=== PATIENT | female | born 1975 | race Caucasian/White ===

== ENCOUNTER 2016-11-29 18:30 | Emergency (ER) | payer MEDICAID ==
[2016-11-29 18:54] VITALS: BP 187/107
--- NOTE | 2016-11-29 19:24 | ER Document Report ---
ED Medical Screen (RME) - General Stated Complaint: HIGH BLOOD PRESSURE Notes: Patient states her blood pressures been elevated since and feet were swelling. Was seen by her doctor on Monday and labs was ordered but no results yet. Complains of left-sided facial twitching and headache. Also states she has been having some blurred vision. Patient does have a history of lupus and migraines. No history of high blood pressure. Patient reports some chest pain or shortness of breath going up the stairs. I have greeted and performed a rapid initial assessment of this patient. A comprehensive ED assessment and evaluation of the patient, analysis of test results and completion of the medical decision making process will be conducted by additional ED providers. TRAVEL OUTSIDE OF THE [place] IN LAST 30 DAYS: No - Related Data Allergies/Adverse Reactions: No Known Allergies Allergy (Verified 11/29/16 19:18) Past Medical History Psychiatric Medical History: Reports: Hx Anxiety Past Surgical History: Reports: Hx Hysterectomy - Immunizations Immunizations up to date: Yes Hx Diphtheria, Pertussis, Tetanus Vaccination: Yes Physical Exam - Vital signs Vitals: Temp Pulse Resp BP Pulse Ox 98.2 F 81 17 187/107 H 100 11/29/16 18:54 11/29/16 18:54 11/29/16 18:54 11/29/16 18:54 11/29/16 18:54 - HEENT Conjunctiva: Normal Extraocular movements intact: Yes Pupils: PERRL Course - Vital Signs Vital signs: Temp Pulse Resp BP Pulse Ox 98.2 F 81 17 187/107 H 100 11/29/16 18:54 11/29/16 18:54 11/29/16 18:54 11/29/16 18:54 11/29/16 18:54
[2016-11-29 19:47] LABS: ABSOLUTE BASOPHILS # (AUTO) 0.1 10^3/uL (0.0-0.2); ABSOLUTE EOSINOPHILS # (AUTO) 0.1 10^3/uL (0.0-0.6); ABSOLUTE LYMPHOCYTES (AUTO) 1.8 10^3/uL (0.5-4.7); ABSOLUTE MONOCYTES (AUTO) 0.6 10^3/uL (0.1-1.4); ABSOLUTE NEUT (AUTO) 7.5 10^3/uL (1.7-8.2); BASOPHILS % (AUTO) 0.7 % (0-2); EOSINOPHILS % (AUTO) 1.3 % (0-6); HEMATOCRIT 40.8 % (36.0-47.0); HEMOGLOBIN 14.2 g/dL (12.0-15.5); HGB HCT DIFFERENCE 1.8; MEAN CORPUSCULAR HEMOGLOBIN 30.5 pg (27.0-33.4); MEAN CORPUSCULAR HGB CONC 34.9 g/dL (32.0-36.0); MEAN CORPUSCULAR VOLUME 88 fl (80-97); MONOCYTES % (AUTO) 5.8 % (3-13); RED BLOOD COUNT 4.66 10^6/uL (3.72-5.28); RED CELL DISTRIBUTION WIDTH 13.1 % (11.5-14.0); SEGMENTED NEUTROPHILS % (AUTO) 74.2 % (42-78); WHITE BLOOD COUNT 10.1 10^3/uL (4.0-10.5)
[2016-11-29 19:56] LABS: APPEARANCE,URINE SLIGHTLY-CLOUDY; BILIRUBIN,URINE NEGATIVE (NEGATIVE); GLUCOSE, URINE NEGATIVE (NEGATIVE); KETONES,URINE NEGATIVE (NEGATIVE); LEUKOCYTE ESTERASE,URINE NEGATIVE (NEGATIVE); NITRITE,URINE NEGATIVE (NEGATIVE); PROTEIN,URINE NEGATIVE (NEGATIVE); URINE SPECIFIC GRAVITY 1.002; UROBILINOGEN,URINE NEGATIVE mg/dL (<2.0)
[2016-11-29 20:03] LABS: ALANINE AMINOTRANSFERASE 27 U/L (9-52); ALBUMIN 4.8 g/dL (3.5-5.0); ALKALINE PHOSPHATASE 52 U/L (38-126); ANION GAP 15 (5-19); ASPARTATE AMINO TRANSFERASE 22 U/L (14-36); BILIRUBIN,DIRECT 0.3 mg/dL (0.0-0.4); BILIRUBIN,TOTAL 0.9 mg/dL (0.2-1.3); BLOOD UREA NITROGEN 9 mg/dL (7-20); CALCIUM 10.2 mg/dL (8.4-10.2); CARBON DIOXIDE 26 mmol/L (22-30); CHLORIDE 103 mmol/L (98-107); CREATINE KINASE 50 U/L (30-135); CREATININE RESULT 0.67 mg/dL (0.52-1.25); GLUCOSE 87 mg/dL (75-110); POTASSIUM 4.1 mmol/L (3.6-5.0); SODIUM 143.5 mmol/L (137-145); TOTAL PROTEIN 7.9 g/dL (6.3-8.2)
[2016-11-29 20:14] LABS: CREATINE KINASE MB 0.23 ng/mL (<4.55)
[2016-11-29 20:17] LABS: TROPONIN I < 0.012 ng/mL
--- NOTE | 2016-11-29 20:22 | EKG REPORT ---
SEVERITY:- NORMAL ECG - SINUS RHYTHM : Confirmed by: Holland Bailey 29-Nov-2016 20:21:17
== END 2016-11-29 22:00 | disposition left against medical advice (07) ==
LOC: ER 18:30
DX: Z53.9 Procedure and treatment not carried out, unspecified reason (principal); R03.0 Elevated blood-pressure reading, without diagnosis of hypertension; M79.89 Other specified soft tissue disorders
CPT/HCPCS: 36415; 71020; 80053; 81001; 82550; 82553; 84484; 85025; 93005; 93010; 99281

== ENCOUNTER 2016-11-29 21:00 | Emergency (ER) | payer MEDICAID | END 2016-11-29 22:15 | disposition left against medical advice (07) | LOC: ER 21:00 | DX: Z53.9 Procedure and treatment not carried out, unspecified reason (principal); R03.0 Elevated blood-pressure reading, without diagnosis of hypertension ==

== ENCOUNTER → 2016-11-30 | Outpatient (CLI) | payer MEDICAID | LOC: RAD 12:09 | PROVIDERS: ATTEND Physician Assistant | DX: R42 Dizziness and giddiness (principal); R51 Headache; H53.8 Other visual disturbances | CPT/HCPCS: 70450 ==

== ENCOUNTER → 2016-12-22 | Outpatient (CLI) | payer MEDICAID | LOC: RAD 09:13 | PROVIDERS: ATTEND Physician Assistant | DX: R42 Dizziness and giddiness (principal); R20.2 Paresthesia of skin; R03.0 Elevated blood-pressure reading, without diagnosis of hypertension | CPT/HCPCS: 93975 ==

== ENCOUNTER → 2017-01-16 | Outpatient (CLI) | payer MEDICAID ==
[2017-01-16 18:23] LABS: ABSOLUTE EOSINOPHILS # (AUTO) 0.1 10^3/uL (0.0-0.6); ABSOLUTE LYMPHOCYTES (AUTO) 1.2 10^3/uL (0.5-4.7); ABSOLUTE MONOCYTES (AUTO) 0.4 10^3/uL (0.1-1.4); ABSOLUTE NEUT (AUTO) 4.8 10^3/uL (1.7-8.2); BASOPHILS % (AUTO) 0.6 % (0-2); HEMATOCRIT 38.4 % (36.0-47.0); HEMOGLOBIN 13.8 g/dL (12.0-15.5); LYMPHOCYTES % (AUTO) 17.9 % (13-45); MEAN CORPUSCULAR HEMOGLOBIN 31.4 pg (27.0-33.4); MEAN CORPUSCULAR HGB CONC 35.9 g/dL (32.0-36.0); MEAN CORPUSCULAR VOLUME 87 fl (80-97); MONOCYTES % (AUTO) 6.8 % (3-13); RED BLOOD COUNT 4.39 10^6/uL (3.72-5.28); SEGMENTED NEUTROPHILS % (AUTO) 72.7 % (42-78); WHITE BLOOD COUNT 6.6 10^3/uL (4.0-10.5)
[2017-01-16 18:48] LABS: ALANINE AMINOTRANSFERASE 31 U/L (9-52); ALKALINE PHOSPHATASE 64 U/L (38-126); ANION GAP 10 (5-19); ASPARTATE AMINO TRANSFERASE 19 U/L (14-36); BILIRUBIN,DIRECT 0.5 mg/dL (0.0-0.4); BILIRUBIN,TOTAL 0.8 mg/dL (0.2-1.3); BLOOD UREA NITROGEN 23 mg/dL (7-20); CALCIUM 9.6 mg/dL (8.4-10.2); CARBON DIOXIDE 26 mmol/L (22-30); CHLORIDE 102 mmol/L (98-107); CREATININE RESULT 0.83 mg/dL (0.52-1.25); GLUCOSE 91 mg/dL (75-110); LIPASE 130.8 U/L (23-300); POTASSIUM 4.1 mmol/L (3.6-5.0); SODIUM 138.3 mmol/L (137-145); TOTAL PROTEIN 7.2 g/dL (6.3-8.2)
== END ==
LOC: OD 17:28
PROVIDERS: ATTEND Physician Assistant
DX: R82.8 Abnormal findings on cytological and histological examination of urine (principal)
CPT/HCPCS: 36415; 80053; 83690; 85025

== ENCOUNTER → 2017-01-17 | Outpatient (CLI) | payer MEDICAID | LOC: OD 07:51 | PROVIDERS: ATTEND Physician Assistant | DX: R82.8 Abnormal findings on cytological and histological examination of urine (principal); K59.00 Constipation, unspecified | CPT/HCPCS: 74022 ==

== ENCOUNTER → 2018-03-27 | Outpatient (CLI) | payer MEDICAID ==
--- NOTE | 2018-03-27 14:17 | RADIOLOGY REPORT (SQ) ---
EXAM DESCRIPTION: HIPS BILATERAL COMPLETED DATE/TIME: 03/27/2018 1:17 pm REASON FOR STUDY: ROBERT JOINT PAIN M25.551 PAIN IN RIGHT HIP M25.552 PAIN IN LEFT HIP COMPARISON: None. NUMBER OF VIEWS: Two views TECHNIQUE: AP pelvis and additional frog-leg view of both hips. LIMITATIONS: None. FINDINGS: MINERALIZATION: Normal. HIPS: Small osteophytes right hip. No acute fracture or dislocation. No worrisome bone lesions. PELVIS AND SACRUM: No acute fracture or dislocation. No worrisome bone lesions. PUBIS AND ISCHIUM: No acute fracture. LOWER LUMBAR SPINE: No significant findings as visualized. SOFT TISSUES: No findings. OTHER: No other significant finding. IMPRESSION: Mild osteoarthritic changes. TECHNICAL DOCUMENTATION: JOB ID: [id number] [employer]- All Rights Reserved Reading location - IP/workstation name: [facility]
== END ==
LOC: OD 13:02
PROVIDERS: ATTEND Family Medicine
DX: M25.551 Pain in right hip (principal); M25.552 Pain in left hip; M16.0 Bilateral primary osteoarthritis of hip
CPT/HCPCS: 73522

== ENCOUNTER 2018-06-29 17:53 | Emergency (ER) | payer BC ==
[2018-06-29] MEDS ORDERED: ONDANSETRON HCL INJ/PF 4 MG/2 ML SDV IV ONE (18:29)
[2018-06-29] MEDS ORDERED: NORMAL SALINE 1000 ML 1,000 ML IV ONE (18:29)
[2018-06-29] MEDS ORDERED: HYDROMORPHONE HCL INJ/PF 2 MG/ML AMPULE IV ONE (18:29)
--- NOTE | 2018-06-29 18:31 | ER Document Report ---
ED Medical Screen (RME) - General Chief Complaint: Flank Pain Stated Complaint: BODY PAIN Time Seen by Provider: 06/29/18 18:28 Mode of Arrival: Wheelchair Information source: Patient Notes: 43-year-old female who presents to the emergency room with significant left flank pain radiating into the left groin, nausea and vomiting. Patient does have a history of lupus and high blood pressure. Her medicines are Norvasc and Toradol. She is not allergic to any medicines. She states that she had some pain Leonor night and it went away and came back today it has been severe. Patient looks quite uncomfortable in triage. TRAVEL OUTSIDE OF THE [place] IN LAST 30 DAYS: No - Related Data Allergies/Adverse Reactions: No Known Allergies Allergy (Verified 11/29/16 19:18) Past Medical History Renal/ Medical History: Denies: Hx Peritoneal Dialysis Psychiatric Medical History: Reports: Hx Anxiety Past Surgical History: Reports: Hx Hysterectomy - Immunizations Immunizations up to date: Yes Hx Diphtheria, Pertussis, Tetanus Vaccination: Yes Physical Exam - Vital signs Vitals: Temp Pulse Resp BP Pulse Ox 98.2 F 98 20 198/130 H 100 06/29/18 18:05 06/29/18 18:05 06/29/18 18:05 06/29/18 18:05 06/29/18 18:05 Course - Vital Signs Vital signs: Temp Pulse Resp BP Pulse Ox 98.2 F 98 20 198/130 H 100 06/29/18 18:05 06/29/18 18:05 06/29/18 18:05 06/29/18 18:05 06/29/18 18:05 Doctor's Discharge - Discharge Referrals: SRIKANTH CANDELARIO DO [Primary Care Provider] - Follow up as needed
[2018-06-29 18:56] LABS: ABSOLUTE BASOPHILS # (AUTO) 0.1 10^3/uL (0.0-0.2); ABSOLUTE EOSINOPHILS # (AUTO) 0.1 10^3/uL (0.0-0.6); ABSOLUTE LYMPHOCYTES (AUTO) 2.2 10^3/uL (0.5-4.7); ABSOLUTE MONOCYTES (AUTO) 0.7 10^3/uL (0.1-1.4); ABSOLUTE NEUT (AUTO) 10.1 10^3/uL (1.7-8.2); BASOPHILS % (AUTO) 0.7 % (0-2); EOSINOPHILS % (AUTO) 0.8 % (0-6); HEMATOCRIT 44.3 % (36.0-47.0); HEMOGLOBIN 15.4 g/dL (12.0-15.5); LYMPHOCYTES % (AUTO) 16.9 % (13-45); MEAN CORPUSCULAR HEMOGLOBIN 30.4 pg (27.0-33.4); MEAN CORPUSCULAR HGB CONC 34.8 g/dL (32.0-36.0); MEAN CORPUSCULAR VOLUME 87 fl (80-97); MONOCYTES % (AUTO) 5.4 % (3-13); PLATELET COUNT 341 10^3/uL (150-450); RED BLOOD COUNT 5.07 10^6/uL (3.72-5.28); RED CELL DISTRIBUTION WIDTH 12.3 % (11.5-14.0); SEGMENTED NEUTROPHILS % (AUTO) 76.2 % (42-78); TOTAL CELLS COUNTED % (AUTO) 100 %; WHITE BLOOD COUNT 13.2 10^3/uL (4.0-10.5)
[2018-06-29 19:23] LABS: ALANINE AMINOTRANSFERASE 15 U/L (9-52); ALBUMIN 4.9 g/dL (3.5-5.0); ALKALINE PHOSPHATASE 68 U/L (38-126); ANION GAP 16 (5-19); ASPARTATE AMINO TRANSFERASE 16 U/L (14-36); BILIRUBIN,DIRECT 0.2 mg/dL (0.0-0.4); BILIRUBIN,TOTAL 0.7 mg/dL (0.2-1.3); BLOOD UREA NITROGEN 24 mg/dL (7-20); CALCIUM 10.1 mg/dL (8.4-10.2); CARBON DIOXIDE 29 mmol/L (22-30); CHLORIDE 99 mmol/L (98-107); GLUCOSE 89 mg/dL (75-110); POTASSIUM 4.2 mmol/L (3.6-5.0); SODIUM 143.5 mmol/L (137-145); TOTAL PROTEIN 8.7 g/dL (6.3-8.2)
[2018-06-29 19:43] LABS: AMORPHOUS SEDIMENT,URINE TRACE /HPF; APPEARANCE,URINE CLOUDY; BILIRUBIN,URINE NEGATIVE (NEGATIVE); COLOR,URINE YELLOW; GLUCOSE, URINE NEGATIVE (NEGATIVE); KETONES,URINE NEGATIVE (NEGATIVE); LEUKOCYTE ESTERASE,URINE NEGATIVE (NEGATIVE); NITRITE,URINE NEGATIVE (NEGATIVE); PROTEIN,URINE 30 mg/dL (NEGATIVE); URINE SPECIFIC GRAVITY 1.024
--- NOTE | 2018-06-29 21:28 | RADIOLOGY REPORT (SQ) ---
CT ABDOMEN PELVIS WITHOUT IV CONTRAST HISTORY: Left flank pain. COMPARISON: None. TECHNIQUE: CT scan of the abdomen and pelvis without contrast. This exam was performed according to our departmental dose-optimization program, which includes automated exposure control, adjustment of the mA and/or kV according to patient size and/or use of iterative reconstruction technique. FINDINGS: Lung bases are clear. No pleural or pericardial effusions. Liver, gallbladder, spleen, pancreas, and adrenal glands are unremarkable. No urinary tract calculus or obstructive uropathy. Pelvic organs are unremarkable. No bowel obstruction. Appendix is not seen. IMPRESSION: No acute abdominopelvic pathology.
[2018-06-29] MEDS ORDERED: KETOROLAC TROMETHAMINE INJ/PF 30 MG/1 ML SDV IV ONE (22:15)
[2018-06-29] MEDS ORDERED: LIDOCAINE 5% (700 MG) TRANSDERMAL ADH..PATCH TP ONE (22:16)
[2018-06-29] MEDS ORDERED: ACETAMINOPHEN 325 MG TABLET PO ONE (22:16)
[2018-06-29] MEDS ORDERED: PREDNISONE 20 MG TABLET PO ONE (22:16)
[2018-06-29] MEDS ORDERED: MORPHINE SULFATE IR 15 MG TABLET PO ONE (22:16)
[2018-06-29] MEDS ORDERED: ONDANSETRON ODT 4 MG TAB (6 TAB/ER DISP) PO PRN (22:25)
--- NOTE | 2018-06-29 22:26 | ER Document Report ---
ED General - General Chief Complaint: Flank Pain Stated Complaint: BODY PAIN Time Seen by Provider: 06/29/18 18:28 Mode of Arrival: Wheelchair Notes: Patient is a 43-year old female with a past medical history of lupus who presents with 36 hours of left-sided flank pain rating into her left groin. She states that this pain has been intermittent in nature. It is a severe, stabbing pain. She states moving worsens the pain. She has tried over-the- counter pain medications with no significant improvement. Denies a history of similar pain in the past. No states she has been nauseated but has not vomited. No fever or constitutional symptoms. She has not seen her general doctor regarding today's concerns. States she has had some intermittent dysuria and urinary frequency. TRAVEL OUTSIDE OF THE [place] IN LAST 30 DAYS: No - Related Data Allergies/Adverse Reactions: No Known Allergies Allergy (Verified 11/29/16 19:18) Past Medical History - General Information source: Patient - Social History Smoking Status: Never Smoker Frequency of alcohol use: None Drug Abuse: None Lives with: Spouse/Significant other Family History: Reviewed & Not Pertinent Patient has suicidal ideation: No Patient has homicidal ideation: No Renal/ Medical History: Denies: Hx Peritoneal Dialysis Psychiatric Medical History: Reports: Hx Anxiety Past Surgical History: Reports: Hx Hysterectomy - Immunizations Immunizations up to date: Yes Hx Diphtheria, Pertussis, Tetanus Vaccination: Yes Review of Systems - Review of Systems Notes: Constitutional: Negative for fever. HENT: Negative for sore throat. Eyes: Negative for visual changes. Cardiovascular: Negative for chest pain. Respiratory: Negative for shortness of breath. Gastrointestinal: Positive for left flank pain and nausea Genitourinary: Positive for dysuria. Musculoskeletal: Negative for back pain. Skin: Negative for rash. Neurological: Negative for headaches, weakness or numbness. 10 point ROS negative except as marked above and in HPI. Physical Exam - Vital signs Vitals: Temp Pulse Resp BP Pulse Ox 98.2 F 98 20 198/130 H 100 06/29/18 18:05 06/29/18 18:05 06/29/18 18:05 06/29/18 18:05 06/29/18 18:05 Interpretation: Hypertensive Notes: PHYSICAL EXAMINATION: GENERAL: Appears moderately uncomfortable but in no acute distress. HEAD: Atraumatic, normocephalic. EYES: Pupils equal round and reactive to light, extraocular movements intact, sclera anicteric, conjunctiva are normal. ENT: nares patent, oropharynx clear without exudates. Moderately dry Mucous membranes. NECK: Normal range of motion, supple without lymphadenopathy LUNGS: Breath sounds clear to auscultation bilaterally and equal. No wheezes rales or rhonchi. HEART: Regular rate and rhythm without murmurs ABDOMEN: Soft, nontender, normoactive bowel sounds. No guarding, no rebound. No masses appreciated. mild left CVA tenderness. EXTREMITIES: Normal range of motion, no pitting or edema. No cyanosis. NEUROLOGICAL: No focal neurological deficits. Moves all extremities spontaneously and on command. PSYCH: Moderately anxious SKIN: Warm, Dry, normal turgor, no rashes or lesions noted. Course - Re-evaluation Re-evalutation: 06/29/18 22:25 Presentation of a 43-year-old female with a past medical history of lupus with 24-36 hours of left flank pain. On exam the patient appears uncomfortable but no overt distress. She does have focal left CVA tenderness but the remainder of her abdominal exam is completely benign. Vitals showed significant hypertension at time of initial presentation which has improved somewhat evaluation the patient has laboratories that show a mild leukocytosis, no evidence of renal dysfunction. Urinalysis shows mild micro scopic hematuria, no evidence of pyonephritis. CT scan of the abdomen pelvis without evidence of aortic pathology, no evidence of hydronephrosis or nephrolithiasis on the left side. Differential diagnostic considerations at this point to include possible inflammation of the kidney as related to underlying lupus versus musculoskeletal etiology. I do not clinically suspect an acute pulmonary embolus as patient denies any shortness of breath, any pleuritic pain, pain is far too low for an acute PE. She is likewise PERC criteria negative. Patient will be started empirically on a course of steroids for the possibility of inflammation of the kidney is related to lupus. She will also be started empirically on a course of antibiotics as she does relate a history of dysuria and urinary frequency. A urine culture has been sent. At this time will discharge with return precautions and follow-up recommendations. Verbal discharge instructions given a the bedside and opportunity for questions given. Medication warnings reviewed. Patient is in agreement with this plan and has verbalized understanding of return precautions and the need for primary care follow-up in the next 24-72 hours. - Vital Signs Vital signs: Temp Pulse Resp BP Pulse Ox 98.2 F 98 20 198/130 H 100 06/29/18 18:05 06/29/18 18:05 06/29/18 18:05 06/29/18 18:05 06/29/18 18:05 - Laboratory Result Diagrams: 06/29/18 18:35 06/29/18 18:35 Laboratory results interpreted by me: 06/29/18 06/29/18 06/29/18 18:35 18:35 18:35 WBC 13.2 H Absolute Neutrophils 10.1 H BUN 24 H Total Protein 8.7 H Urine Protein 30 H Urine Urobilinogen 4.0 H - Diagnostic Test Radiology reviewed: Reports reviewed Discharge - Discharge Clinical Impression: Left flank pain, Essential hypertension, Nausea Lupus Qualifiers: Lupus erythematosus form: unspecified 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 Your urine study does show blood but no evidence of infection. However given your symptoms a culture has been sent of your urine and you are being started on empiric antibiotics. You are also being started on a course of steroids to treat the possibility of kidney inflammation related to your lupus. For your pain: Take ibuprofen 600 mg and acetaminophen 1000 mg every 6 hours together as needed for pain. If this does not control your pain you may take 15 mg of oral morphine every 4 hours as needed. Please be very careful about using the oral morphine and only use this for severe pain. Please follow closely with the manager advertising as scheduled. Return if you have worsening pain, fever greater than 101 F, becomes unable to tolerate fluids, or have any other symptoms that are worrisome to you. Prescriptions: Morphine Sulfate [Morphine Ir 15 mg Tablet] 15 mg PO Q6HP PRN #8 tablet PRN Reason: Cephalexin Monohydrate [Keflex 500 mg Capsule] 500 mg PO Q6H 5 Days capsule Prednisone [Deltasone 20 mg Tablet] 2 tab PO DAILY 5 Days tablet Referrals: SRIKANTH CANDELARIO DO [Primary Care Provider] - Follow up tomorrow
[2018-06-29] MEDS ORDERED: CEPHALEXIN 500 MG CAPSULE PO ONE (23:26)
[2018-06-30 01:35] VITALS: BP 127/81
== END 2018-06-29 23:28 | disposition home or self-care (01) ==
LOC: ER 17:53
DX: R10.9 Unspecified abdominal pain (principal); R11.0 Nausea; L93.0 Discoid lupus erythematosus; I10 Essential (primary) hypertension; Z90.710 Acquired absence of both cervix and uterus
CPT/HCPCS: 99284; 96361; 96374; 96375; 36415; 87086; 85025; 80053; 81001; 74176; J1170; J7512; J2405; J7030

== ENCOUNTER 2018-07-04 15:34 | Emergency (ER) | payer BC ==
[2018-07-04] MEDS ORDERED: KETOROLAC TROMETHAMINE 60 MG/2 ML SDV IM ONE (16:47)
[2018-07-04] MEDS ORDERED: DICYCLOMINE HCL INJ 20 MG/2 ML AMPULE IM ONE (16:47)
--- NOTE | 2018-07-04 16:49 | ER Document Report ---
ED GI/ - General Chief Complaint: Abdominal Pain Stated Complaint: LEFT FLANK PAIN,ABDOMINAL PAIN Time Seen by Provider: 07/04/18 16:37 Notes: Chief complaint: abdominal pain: History of complain:( obtained from----patient) 43 years old female presents today with diffuse abdominal pain, she was seen here a week ago, given morphine and antibiotic. States his pain is not improved. Therefore present to the ED. Crampy abdominal pain. Nauseous no vomiting. Denies any diarrhea. Denies any fever chills or other constitutional symptoms. Crampy in nature. Onset: About a week ago gradual Duration: 1 week Severity: Mild to moderate Quality: Crampy Context: Unknown Exacerbating factor and relieving factors: None REVIEW OF SYSTEMS: CONSTITUTIONAL : Denies fever, chills, or sweats. Denies recent illness. EENT: Denies eye, ear, throat, or mouth pain or symptoms. Denies nasal or sinus congestion or discharge. Denies throat, tongue, or mouth swelling or difficulty swallowing. CARDIOVASCULAR: Denies chest pain. Denies palpitations or racing or irregular heart beat. Denies ankle edema. RESPIRATORY: Denies cough, cold, or chest congestion. Denies shortness of breath, difficulty breathing, or wheezing. GASTROINTESTINAL: Denies distention. Denies nausea, vomiting, or diarrhea. Denies blood in vomitus, stools, or per rectum. Denies black, tarry stools. Denies constipation. GENITOURINARY: Denies difficulty urinating, painful urination, burning, frequency, blood in urine, or discharge. FEMALE GENITOURINARY: Denies vaginal bleeding, heavy or abnormal periods, irregular periods. Denies vaginal discharge or odor. MUSCULOSKELETAL: Denies back or neck pain or stiffness. Denies joint pain or swelling. SKIN: Denies rash, lesions or sores. HEMATOLOGIC : Denies easy bruising or bleeding. LYMPHATIC: Denies swollen, enlarged glands. NEUROLOGICAL: Denies confusion or altered mental status. Denies passing out or loss of consciousness. Denies dizziness or lightheadedness. Denies headache. Denies weakness or paralysis or loss of use of either side. Denies problems with gait or speech. Denies sensory loss, numbness, or tingling. Denies seizures. PSYCHIATRIC: Denies anxiety or stress. Denies depression, suicidal ideation, or homicidal ideation. ALL OTHER SYSTEMS REVIEWED AND NEGATIVE. PHYSICAL EXAMINATION: GENERAL: Well-appearing, well-nourished and in mild to moderate acute distress. HEAD: Atraumatic, normocephalic. EYES: Pupils equal round and reactive to light, extraocular movements intact, conjunctiva are normal. ENT: Nares patent, oropharynx clear without exudates. Moist mucous membranes. NECK: Normal range of motion, supple without lymphadenopathy LUNGS: Breath sounds clear to auscultation bilaterally and equal. No wheezes rales or rhonchi. HEART: Regular rate and rhythm without murmurs ABDOMEN: Soft, diffuse tenderness, nondistended abdomen. No guarding, no rebound. No masses appreciated. Female : deferred Musculoskeletal: Normal range of motion, no pitting or edema. No cyanosis. NEUROLOGICAL: Cranial nerves grossly intact. Normal speech, normal gait. Normal sensory, motor exams PSYCH: Normal mood, normal affect. SKIN: Warm, Dry, normal turgor, no rashes or lesions noted. Dictation was performed using [employer] voice recognition software TRAVEL OUTSIDE OF THE [place] IN LAST 30 DAYS: No - HPI Notes: 07/04/18 16:49 Dictated - Related Data Allergies/Adverse Reactions: No Known Allergies Allergy (Verified 07/04/18 16:28) Past Medical History - Social History Smoking Status: Never Smoker Frequency of alcohol use: Rare Drug Abuse: Bath salts Lives with: Family Family History: Reviewed & Not Pertinent Renal/ Medical History: Denies: Hx Peritoneal Dialysis Psychiatric Medical History: Reports: Hx Anxiety Past Surgical History: Reports: Hx Hysterectomy - Immunizations Immunizations up to date: Yes Hx Diphtheria, Pertussis, Tetanus Vaccination: Yes Review of Systems - Review of Systems Notes: Dictated Physical Exam - Vital signs Vitals: Temp Pulse Resp BP Pulse Ox 98.3 F 88 20 144/89 H 97 07/04/18 16:04 07/04/18 16:04 07/04/18 16:04 07/04/18 16:04 07/04/18 16:04 - Notes Notes: Dictated Course - Vital Signs Vital signs: Temp Pulse Resp BP Pulse Ox 98.3 F 88 20 144/89 H 97 07/04/18 16:04 07/04/18 16:04 07/04/18 16:04 07/04/18 16:04 10/31/18 16:04 Discharge - Discharge Prescriptions: Linaclotide [Linzess] 145 mcg PO Q6AM #30 capsule Referrals: SRIKANTH CANDELARIO, [Primary Care Provider] - Follow up as needed
[2018-07-04] MEDS ORDERED: ONDANSETRON HCL INJ/PF 4 MG/2 ML SDV IV ONE (18:04)
[2018-07-04] MEDS ORDERED: LACTULOSE SYRUP 20 GM/30 ML UDCUP PO ONE (18:04)
[2018-07-04] MEDS ORDERED: NORMAL SALINE 1000 ML 1,000 ML IV ONE ×2 (18:06)
--- NOTE | 2018-07-04 18:11 | ER Document Report ---
ED GI/ - General Chief Complaint: Abdominal Pain Stated Complaint: LEFT FLANK PAIN,ABDOMINAL PAIN Time Seen by Provider: 07/04/18 16:37 Mode of Arrival: Ambulatory Information source: Patient Notes: 3-year-old female presents to ED for continued abdominal pain with back pain and left and right flank pain. She states that her pain in her abdomen is getting worse and worse and everybody keeps sending her back and forth and she is not getting any better. She states she was seen Monday and the pain is much worse. She states she went to her primary care doctor today and they sent her back to the emergency room. She states she went to her second mate he did a chest x-ray and told her that she needed to return to the ED. She said she needs some answers of why she is having so much abdominal pain and nausea. She states she has not had a stool since Monday. She states she has had no stool of any kind since Monday. She denies any fevers or chills. She states she has a cousin who had colon cancer so she had a colonoscopy about 6 years ago. TRAVEL OUTSIDE OF THE [place] IN LAST 30 DAYS: No - HPI Patient complains to provider of: Abdominal pain, Flank pain, Other - Back pain and nausea Onset: Last week Timing/Duration: Persistent, Worse Quality of pain: Cramping, Sharp Severity at maximum: Severe Severity in ED: Severe Pain Level: 5 Location: Epigastric, LUQ, LLQ, RUQ, RLQ, Left flank, Low back Vaginal bleeding (Compared to normal period): None Associated symptoms: Constipation, Hard stool - On Monday, Nausea. denies: Vomiting Exacerbated by: Movement, Walking Relieved by: Denies Similar symptoms previously: Yes Recently seen / treated by doctor: Yes - Related Data Allergies/Adverse Reactions: No Known Allergies Allergy (Verified 07/04/18 16:28) Past Medical History - General Information source: Patient - Social History Smoking Status: Never Smoker Cigarette use (# per day): No Chew tobacco use (# tins/day): No Smoking Education Provided: No Frequency of alcohol use: Rare Drug Abuse: None Lives with: Family Family History: Malignancy - Cousin has colon cancer Patient has suicidal ideation: No Patient has homicidal ideation: No - Past Medical History Cardiac Medical History: Reports: None Pulmonary Medical History: Reports: None EENT Medical History: Reports: None Neurological Medical History: Reports: None Endocrine Medical History: Reports: None Renal/ Medical History: Reports: None Malignancy Medical History: Reports: None GI Medical History: Reports: Hx Colonoscopy, Hx Endoscopy Musculoskeletal Medical History: Reports None Skin Medical History: Reports None Psychiatric Medical History: Reports: Hx Anxiety Traumatic Medical History: Reports: None Infectious Medical History: Reports: None Past Surgical History: Reports: Hx Hysterectomy - Immunizations Immunizations up to date: Yes Hx Diphtheria, Pertussis, Tetanus Vaccination: Yes Review of Systems - Review of Systems Constitutional: No symptoms reported EENT: No symptoms reported Cardiovascular: No symptoms reported Respiratory: No symptoms reported Gastrointestinal: Abdominal pain, Nausea, Constipation. denies: Diarrhea, Vomiting Genitourinary: No symptoms reported Female Genitourinary: No symptoms reported Musculoskeletal: No symptoms reported Skin: No symptoms reported Hematologic/Lymphatic: No symptoms reported Neurological/Psychological: No symptoms reported -: Yes All other systems reviewed and negative Physical Exam - Vital signs Vitals: Temp Pulse Resp BP Pulse Ox 98.3 F 88 20 144/89 H 97 07/04/18 16:04 07/04/18 16:04 07/04/18 16:04 07/04/18 16:04 07/04/18 16:04 Interpretation: Normal - General General appearance: Appears well, Alert - HEENT Head: Normocephalic, Atraumatic Eyes: Normal Pupils: PERRL - Respiratory Respiratory status: No respiratory distress Chest status: Nontender Breath sounds: Normal Chest palpation: Normal - Cardiovascular Rhythm: Regular Heart sounds: Normal auscultation Murmur: No - Abdominal Inspection: Normal Distension: Distended Bowel sounds: Hyperactive Tenderness: Tender - generalized Organomegaly: No organomegaly - Back Back: Normal, Nontender - Extremities General upper extremity: Normal inspection, Nontender, Normal color, Normal ROM , Normal temperature General lower extremity: Normal inspection, Nontender, Normal color, Normal ROM , Normal temperature, Normal weight bearing. No: Nicole's sign - Neurological Neuro grossly intact: Yes Cognition: Normal Orientation: AAOx4 [place] Coma Scale Eye Opening: Spontaneous Jennifer Coma Scale Verbal: Oriented Jennifer Coma Scale Motor: Obeys Commands Jennifer Coma Scale Total: 15 Speech: Normal Motor strength normal: LUE, RUE, LLE, RLE Sensory: Normal - Psychological Associated symptoms: Anxious, Tearful - Skin Skin Temperature: Warm Skin Moisture: Dry Skin Color: Normal Course - Re-evaluation Re-evalutation: 07/05/18 01:42 Dr. Arredondo was consulted multiple times concerning this patient's abdominal pain. He sent a prescription to be low for constipation medication and recommended the patient be treated with Cipro and Flagyl IV in the emergency room and a CT abdomen pelvis IV and oral contrast. These were completed. He also instructed that as long as the CT showed the constipation as expected to have patient follow-up with her primary doctor and schedule a gastroenterology appointment. He also recommended patient be discharged home with prescriptions for Cipro and Flagyl. These medications were sent to the pharmacy for her to pickle cutter in the morning. The Cipro and Flagyl were completed IV in the emergency room. Patient did receive enemas in the emergency room and had moderate amount of results. Patient was instructed to follow-up tomorrow with primary doctor to have follow-up for this abdominal pain written reports of CD and labs were given to patient to follow-up with her primary doctor. - Vital Signs Vital signs: Temp Pulse Resp BP Pulse Ox 98.3 F 88 20 144/89 H 97 07/04/18 16:04 07/04/18 16:04 07/04/18 16:04 07/04/18 16:04 07/04/18 16:04 - Laboratory Result Diagrams: 07/04/18 18:10 07/04/18 18:10 Laboratory results interpreted by me: 07/04/18 07/04/18 07/04/18 18:10 18:10 18:10 WBC 16.7 H Seg Neutrophils % 89.0 H Lymphocytes % 7.2 L Absolute Neutrophils 14.9 H Carbon Dioxide 31 H BUN 22 H AST 12 L Urine Blood SMALL H - Diagnostic Test Radiology reviewed: Image reviewed, Reports reviewed Discharge - Discharge Clinical Impression: Abdominal pain Qualifiers: Abdominal location: generalized Qualified Code(s): R10.84 - Generalized abdominal pain Constipation Qualifiers: Constipation type: unspecified constipation type Qualified Code(s): K59.00 - Constipation, unspecified Condition: Stable Disposition: HOME, SELF-CARE Instructions: Gastroenterology Additional Instructions: ABDOMINAL PAIN: There are many causes of abdominal pain. Pain can mean a serious problem requiring surgery (such as appendicitis). It can also be an innocent problem that goes away on its own (such as a viral infection). Often, time must pass to determine the cause of pain. The physician does not feel that hospitalization is necessary, at present. Things may change within the next 24 hours. Call the doctor or come back for re- examination if any problems occur, such as: (1) Pain that becomes more severe, steady, or becomes concentrated in one specific area. Also, pain that is more severe with movement or coughing. (2) Vomiting that persists or becomes more frequent. (3) Blood in the vomitus, urine, or bowel movements. Blood in the stool may have a tarry or black appearance. (4) Shaking chills or fever greater than 100 degrees F. (5) The abdomen becomes more distended or swollen. (6) Bowel movements cease. (7) Failure to improve as expected. You have been given soapsuds with mineral oil enemas while in the emergency room with some results as well as lactulose. Please call your doctor tomorrow and let him know how bad your constipation was. Also take him a report of your labs and CAT scan. CONSTIPATION: Constipation is a common problem. It is especially likely as you get older. Constipation is a common cause of abdominal pain, but sometimes causes no symptoms at all. Causes of constipation include certain medications, dehydration, diets, inactivity, and low-fiber intake. Rarely, it can be a symptom of underlying disease. The physician has evaluated you for this. Avoid constipation by eating a diet high in fiber, fruits, and vegetables. Drink plenty of liquids. Get regular exercise. If possible, avoid constipating medicines like narcotic pain medication. Some vitamin tablets can cause constipation. Stool softeners may be needed for difficult cases. An excellent stool softener is Konsyl which is available at [employer], [employer]. Just add a teaspoon to a glass of pineapple or orange juice daily or twice a day if needed. Laxatives are useful for occasional constipation. You should use them only when necessary. Too-frequent use can make your bowels dependent on them. Some over the counter laxatives available without prescription are: Milk of Magnesia, 1-2 tablespoons twice a day Dulcolax, 5 mg pill or 10 mg suppository. Citrate of Magnesia, 4-5 ounces a day for a day or two For acute constipation, Fleet's Enemas and Dulcolax suppositories are helpful. Chronic, residential use of laxatives or enemas is not a good idea. Your bowel may become dependant on them. You do not need to have a bowel movement every day. Many people do fine with a bowel movement every three or four days. You should call your doctor or return for re-evaluation if you pass blood in the stool, or if you develop fever or increasing abdominal pain. BULK LAXATIVES: Bulk laxatives make the stool softer and bulkier. They're useful for preventing constipation. You can choose between psyllium, methylcellulose, and polycarbophil. They are available without a prescription. Psyllium brand names include Konsyl, Metamucil, Perdiem, Effer-Syllium and Hydrocil. It's available as powder, flavored drink powder, or chewable. The usual dose of psyllium powder is one heaping teaspoon in water each morning, increasing to twice a day if needed. [place] juice can disguise the slightly grainy texture. Methylcellulose is marketed as Citrucel and other brands. The average dose is two grams in a cup of water one to three times a day. Polycarbophil is marketed as Fiber-Con. Take two tablets with a cup of water one to three times a day. LAXATIVE: A laxative agent has been prescribed for your condition. This should result in passage of stool within 12 hours. Some mild intestinal cramping is common as the hard stool begins to move. You may have loose or runny stools for a short time. Contact your doctor if there is severe cramping, vomiting, or passage of blood. Return for further care if this medicine fails to improve your condition. FOLLOW-UP CARE: If you have been referred to a physician for follow-up care, call the physician s office for an appointment as you were instructed or within the next two days. If you experience worsening or a significant change in your symptoms, notify the physician immediately or return to the Emergency Department at any time for re-evaluation. Prescriptions: Ciprofloxacin HCl [Cipro 500 mg Tablet] 500 mg PO BID #10 tablet Linaclotide [Linzess] 145 mcg PO Q6AM #30 capsule Metronidazole [Flagyl 500 mg Tablet] 500 mg PO BID #14 tablet Forms: Elevated Blood Pressure, Return to Work Referrals: CARLOS SOTO MD [Primary Care Provider] - Follow up as needed
[2018-07-04 18:24] LABS: ABSOLUTE LYMPHOCYTES (AUTO) 1.2 10^3/uL (0.5-4.7); ABSOLUTE MONOCYTES (AUTO) 0.6 10^3/uL (0.1-1.4); ABSOLUTE NEUT (AUTO) 14.9 10^3/uL (1.7-8.2); BASOPHILS % (AUTO) 0.1 % (0-2); HEMATOCRIT 41.7 % (36.0-47.0); HEMOGLOBIN 14.4 g/dL (12.0-15.5); LYMPHOCYTES % (AUTO) 7.2 % (13-45); MEAN CORPUSCULAR HEMOGLOBIN 30.7 pg (27.0-33.4); MEAN CORPUSCULAR HGB CONC 34.5 g/dL (32.0-36.0); MEAN CORPUSCULAR VOLUME 89 fl (80-97); MONOCYTES % (AUTO) 3.7 % (3-13); PLATELET COUNT 320 10^3/uL (150-450); RED BLOOD COUNT 4.67 10^6/uL (3.72-5.28); RED CELL DISTRIBUTION WIDTH 12.5 % (11.5-14.0); TOTAL CELLS COUNTED % (AUTO) 100 %; WHITE BLOOD COUNT 16.7 10^3/uL (4.0-10.5)
[2018-07-04] MEDS ORDERED: LACTULOSE SYRUP 20 GM/30 ML UDCUP PO PRN (18:25)
[2018-07-04 18:35] LABS: ALANINE AMINOTRANSFERASE 11 U/L (9-52); ALBUMIN 4.4 g/dL (3.5-5.0); ALKALINE PHOSPHATASE 47 U/L (38-126); ANION GAP 11 (5-19); ASPARTATE AMINO TRANSFERASE 12 U/L (14-36); BILIRUBIN,DIRECT 0.2 mg/dL (0.0-0.4); BILIRUBIN,TOTAL 0.5 mg/dL (0.2-1.3); BLOOD UREA NITROGEN 22 mg/dL (7-20); CALCIUM 9.6 mg/dL (8.4-10.2); CARBON DIOXIDE 31 mmol/L (22-30); CHLORIDE 101 mmol/L (98-107); GLUCOSE 104 mg/dL (75-110); LIPASE 143.4 U/L (23-300); POTASSIUM 4.2 mmol/L (3.6-5.0); SODIUM 143.2 mmol/L (137-145); TOTAL PROTEIN 7.4 g/dL (6.3-8.2)
[2018-07-04 18:50] LABS: APPEARANCE,URINE CLEAR; BILIRUBIN,URINE NEGATIVE (NEGATIVE); COLOR,URINE YELLOW; GLUCOSE, URINE NEGATIVE (NEGATIVE); KETONES,URINE NEGATIVE (NEGATIVE); LEUKOCYTE ESTERASE,URINE NEGATIVE (NEGATIVE); NITRITE,URINE NEGATIVE (NEGATIVE); PROTEIN,URINE NEGATIVE (NEGATIVE); URINE SPECIFIC GRAVITY 1.015; UROBILINOGEN,URINE NEGATIVE mg/dL (<2.0)
[2018-07-04] MEDS ORDERED: FAMOTIDINE INJ/PF 20 MG/2 ML SDV IV ONE (19:28)
[2018-07-04] MEDS ORDERED: CIPROFLOXACIN 400 MG/D5W RTU 400 MG/200 ML RTUPB IV ONE (19:40)
[2018-07-04] MEDS ORDERED: METRONIDAZOLE 500 MG/NS RTU 500 MG/100 ML RTUPB IV ONE (20:00)
--- NOTE | 2018-07-04 21:21 | RADIOLOGY REPORT (SQ) ---
EXAM DESCRIPTION: CT ABDOMEN PELVIS WITH IV CONTRAST COMPLETED DATE/TME: 07/04/2018 00:00 CLINICAL HISTORY: 43 years, Female, Continued abdominal pain and nausea COMPARISON: Prior CT 06/29/2018 TECHNIQUE: 384 Images stored on PACS. All CT scanners at this facility use dose modulation, iterative reconstruction, and/or weight based dosing when appropriate to reduce radiation dose to as low as reasonably achievable (ALARA). [facility]: Dose Right [facility]: CareDose [facility]: Dose Right [facility]: Teradose 4D [facility]: [employer] LIMITATIONS: None. FINDINGS: Limited evaluation of the lung bases is unremarkable. Osseous structures are grossly intact. The liver, spleen, adrenal glands, pancreas, kidneys are unremarkable. The gallbladder is present. Abundant stool in the colon. No evidence for bowel obstruction. Mobile cecum, with the cecum extending to the mid pelvic region. Normal appendix. No free intraperitoneal air or free fluid. Cystic structure in the right hemipelvis/right adnexal region could reflect a residual/postmenopausal cyst and possible residual ovarian tissue.. This measures approximately 4.0 x 2.3 cm. This could be confirmed with ultrasound.. IMPRESSION: Large amount of stool in the colon. Cystic lesion within the pelvis, possibly relating to residual/postmenopausal cyst and residual ovarian tissue. This could be confirmed with ultrasound. TECHNICAL DOCUMENTATION: Quality ID # [id number]: Final reports with documentation of one or more dose reduction techniques (e.g., Automated exposure control, adjustment of the mA and/or kV according to patient size, use of iterative reconstruction technique) 2010 [employer]- All Rights Reserved
[2018-07-05 02:00] VITALS: BP 160/90
== END 2018-07-05 00:25 | disposition home or self-care (01) ==
LOC: ER 15:34
DX: K59.00 Constipation, unspecified (principal); R10.84 Generalized abdominal pain; M54.5 Low back pain; R11.0 Nausea; Z80.0 Family history of malignant neoplasm of digestive organs
CPT/HCPCS: 99284; 96372; 96361; 96375; 96365; 96366; 96367; 36415; 87086; 83690; 85025; 80053; 81001; 74177; J0500; J1885; J2405; J7030; J0744; S0028

== ENCOUNTER 2018-07-11 18:33 | Emergency (ER) | payer BC ==
--- NOTE | 2018-07-11 19:00 | ER Document Report ---
ED Medical Screen (RME) - General Chief Complaint: Flank Pain Stated Complaint: SIDE PAIN, BLOOD PRESSURE ISSUE Time Seen by Provider: 07/11/18 18:59 Notes: 43 years old female presents today with left lower back pain of sudden onset radiating towards the pubic region as well as vulvovaginal region. Sharp pain 10/10 in intensity. She is twisting and turning in pain. This is her third visit. TRAVEL OUTSIDE OF THE [place] IN LAST 30 DAYS: No - Related Data Allergies/Adverse Reactions: No Known Allergies Allergy (Verified 07/11/18 18:36) Past Medical History - Social History Frequency of alcohol use: Rare Drug Abuse: None Renal/ Medical History: Denies: Hx Peritoneal Dialysis GI Medical History: Reports: Hx Colonoscopy, Hx Endoscopy Psychiatric Medical History: Reports: Hx Anxiety Past Surgical History: Reports: Hx Hysterectomy - Immunizations Immunizations up to date: Yes Hx Diphtheria, Pertussis, Tetanus Vaccination: Yes Physical Exam - Vital signs Vitals: Temp Pulse Resp BP Pulse Ox 97.7 F 77 24 H 211/96 H 99 07/11/18 18:40 07/11/18 18:40 07/11/18 18:40 07/11/18 18:40 07/11/18 18:40 Course - Vital Signs Vital signs: Temp Pulse Resp BP Pulse Ox 97.7 F 77 24 H 211/96 H 99 07/11/18 18:40 07/11/18 18:40 07/11/18 18:40 07/11/18 18:40 07/11/18 18:40 Doctor's Discharge - Discharge Referrals: CARLOS SOTO MD [Primary Care Provider] - Follow up as needed
[2018-07-11] MEDS ORDERED: DIPHENHYDRAMINE HCL 50 MG/ML VIAL IV ONE (19:36)
[2018-07-11] MEDS ORDERED: NORMAL SALINE 1000 ML 1,000 ML IV ONE (19:36)
[2018-07-11] MEDS ORDERED: KETOROLAC TROMETHAMINE INJ/PF 30 MG/1 ML SDV IV ONE (19:36)
[2018-07-11] MEDS ORDERED: METOCLOPRAMIDE HCL INJ/PF 10 MG/2 ML SDV IV ONE (19:36)
[2018-07-11 20:35] LABS: ABSOLUTE BASOPHILS # (AUTO) 0.1 10^3/uL (0.0-0.2); ABSOLUTE EOSINOPHILS # (AUTO) 0.1 10^3/uL (0.0-0.6); ABSOLUTE LYMPHOCYTES (AUTO) 1.6 10^3/uL (0.5-4.7); ABSOLUTE MONOCYTES (AUTO) 0.7 10^3/uL (0.1-1.4); ABSOLUTE NEUT (AUTO) 7.9 10^3/uL (1.7-8.2); BASOPHILS % (AUTO) 0.7 % (0-2); EOSINOPHILS % (AUTO) 0.6 % (0-6); HEMATOCRIT 40.3 % (36.0-47.0); HEMOGLOBIN 14.4 g/dL (12.0-15.5); LYMPHOCYTES % (AUTO) 15.6 % (13-45); MEAN CORPUSCULAR HEMOGLOBIN 31.5 pg (27.0-33.4); MEAN CORPUSCULAR HGB CONC 35.7 g/dL (32.0-36.0); MEAN CORPUSCULAR VOLUME 88 fl (80-97); MONOCYTES % (AUTO) 6.7 % (3-13); PLATELET COUNT 309 10^3/uL (150-450); RED BLOOD COUNT 4.58 10^6/uL (3.72-5.28); RED CELL DISTRIBUTION WIDTH 12.5 % (11.5-14.0); SEGMENTED NEUTROPHILS % (AUTO) 76.4 % (42-78); TOTAL CELLS COUNTED % (AUTO) 100 %; WHITE BLOOD COUNT 10.3 10^3/uL (4.0-10.5)
--- NOTE | 2018-07-11 20:41 | RADIOLOGY REPORT (SQ) ---
EXAM DESCRIPTION: ACUTE ABDOMEN SERIES COMPLETED DATE/TIME: 07/11/2018 8:26 pm REASON FOR STUDY: abd pain hx constipation COMPARISON: None. NUMBER OF VIEWS: Three views. TECHNIQUE: Frontal chest, supine abdomen and upright/decubitus abdomen radiographic images acquired. LIMITATIONS: None. FINDINGS: CHEST: Lungs clear of infiltrates. FREE AIR: None. No abnormal gas collections. BOWEL GAS PATTERN: Nonobstructive pattern. Considerable stool is present. CALCIFICATIONS: No suspicious calcifications. HARDWARE: None in the abdomen. SOFT TISSUES: No gross mass or suggestion of organomegaly. BONES: No acute fracture. No worrisome bone lesions. OTHER: No other significant finding. IMPRESSION: Possible constipation. TECHNICAL DOCUMENTATION: JOB ID: [id number] [employer]- All Rights Reserved Reading location - IP/workstation name: [email or web address]
[2018-07-11 20:49] LABS: ALANINE AMINOTRANSFERASE 23 U/L (9-52); ALBUMIN 4.8 g/dL (3.5-5.0); ALKALINE PHOSPHATASE 57 U/L (38-126); ANION GAP 17 (5-19); ASPARTATE AMINO TRANSFERASE 21 U/L (14-36); BILIRUBIN,DIRECT 0.3 mg/dL (0.0-0.4); BILIRUBIN,TOTAL 0.7 mg/dL (0.2-1.3); BLOOD UREA NITROGEN 16 mg/dL (7-20); CALCIUM 9.8 mg/dL (8.4-10.2); CARBON DIOXIDE 24 mmol/L (22-30); CHLORIDE 100 mmol/L (98-107); GLUCOSE 101 mg/dL (75-110); LIPASE 269.5 U/L (23-300); SODIUM 140.9 mmol/L (137-145); TOTAL PROTEIN 8.2 g/dL (6.3-8.2)
[2018-07-11 20:51] LABS: APPEARANCE,URINE SLIGHTLY-CLOUDY; BILIRUBIN,URINE NEGATIVE (NEGATIVE); COLOR,URINE YELLOW; GLUCOSE, URINE NEGATIVE (NEGATIVE); KETONES,URINE NEGATIVE (NEGATIVE); LEUKOCYTE ESTERASE,URINE NEGATIVE (NEGATIVE); NITRITE,URINE NEGATIVE (NEGATIVE); PROTEIN,URINE NEGATIVE (NEGATIVE); URINE SPECIFIC GRAVITY 1.015; UROBILINOGEN,URINE NEGATIVE mg/dL (<2.0)
[2018-07-11 21:04] LABS: URINE AMPHETAMINES SCREEN NEGATIVE; URINE BARBITURATES SCREEN NEGATIVE; URINE BENZODIAZEPINES SCREEN NEGATIVE; URINE COCAINE SCREEN NEGATIVE; URINE MARIJUANA (THC) SCREEN NEGATIVE; URINE METHADONE SCREEN NEGATIVE; URINE PHENCYCLIDINE SCREEN NEGATIVE
--- NOTE | 2018-07-11 21:27 | ER Document Report ---
ED General - General Chief Complaint: Flank Pain Stated Complaint: SIDE PAIN, BLOOD PRESSURE ISSUE Time Seen by Provider: 07/11/18 18:59 TRAVEL OUTSIDE OF THE [place] IN LAST 30 DAYS: No - HPI Patient complains to provider of: Abdominal pain Notes: Patient coming in for abdominal pain. Patient states abdominal pain here all of a sudden earlier tonight. Patient states left flank left lower quadrant going into the lower pelvic region. Patient denies any trouble urinating. Patient has been seen now approximate 3 or 4 times for similar presentation. Patient had a kidney stones CT study that was negative patient also had a CT study i.v. and oral contrast that showed marked constipation. Patient states after that visit she did take MiraLAX and had good stool production. Patient denies any nausea vomiting diarrhea. I was notified by nursing staff the patient had taken her pants off or begin stretcher therefore I was escorted into the room by the nursing staff Becky. Patient is rolling to bed and sitting up sitting down moaning in pain. Patient denies any fever chills nausea vomiting diarrhea - Related Data Allergies/Adverse Reactions: No Known Allergies Allergy (Verified 07/11/18 18:36) Past Medical History - Social History Smoking Status: Former Smoker Frequency of alcohol use: Rare Drug Abuse: None Family History: Malignancy - Cousin has colon cancer Patient has suicidal ideation: No Patient has homicidal ideation: No Renal/ Medical History: Denies: Hx Peritoneal Dialysis GI Medical History: Reports: Hx Colonoscopy, Hx Endoscopy Psychiatric Medical History: Reports: Hx Anxiety Past Surgical History: Reports: Hx Hysterectomy - Immunizations Immunizations up to date: Yes Hx Diphtheria, Pertussis, Tetanus Vaccination: Yes Review of Systems - Review of Systems Constitutional: No symptoms reported EENT: No symptoms reported Cardiovascular: No symptoms reported Respiratory: No symptoms reported Gastrointestinal: Abdominal pain Genitourinary: No symptoms reported Female Genitourinary: No symptoms reported Musculoskeletal: No symptoms reported Skin: No symptoms reported Hematologic/Lymphatic: No symptoms reported Neurological/Psychological: No symptoms reported -: Yes All other systems reviewed and negative Physical Exam - Vital signs Vitals: Temp Pulse Resp BP Pulse Ox 97.7 F 77 24 H 211/96 H 99 07/11/18 18:40 07/11/18 18:40 07/11/18 18:40 07/11/18 18:40 07/11/18 18:40 Interpretation: Normal - General General appearance: Appears well, Alert - HEENT Head: Normocephalic, Atraumatic Eyes: Normal Pupils: PERRL - Respiratory Respiratory status: No respiratory distress Chest status: Nontender Breath sounds: Normal Chest palpation: Normal - Cardiovascular Rhythm: Regular Heart sounds: Normal auscultation Murmur: No - Abdominal Inspection: Normal Distension: No distension Bowel sounds: Normal Tenderness: Nontender Organomegaly: No organomegaly - Back Back: Normal, Nontender - Extremities General upper extremity: Normal inspection, Nontender, Normal color, Normal ROM , Normal temperature General lower extremity: Normal inspection, Nontender, Normal color, Normal ROM , Normal temperature, Normal weight bearing. No: Nicole's sign - Neurological Neuro grossly intact: Yes Cognition: Normal Orientation: AAOx4 Jennifer Coma Scale Eye Opening: Spontaneous Jennifer Coma Scale Verbal: Oriented Jennifer Coma Scale Motor: Obeys Commands Jennifer Coma Scale Total: 15 Speech: Normal Motor strength normal: LUE, RUE, LLE, RLE Sensory: Normal - Psychological Associated symptoms: Normal affect, Normal mood - Skin Skin Temperature: Warm Skin Moisture: Dry Skin Color: Normal Course - Re-evaluation Re-evalutation: 07/11/18 21:53 The patient presents with abdominal pain without signs of peritonitis or other life-threatening or serious etiology. The patient appears stable for discharge and has been instructed to return immediately if the symptoms worsen in any way , or in 8-12hr if not improved for re-evaluation. The patient has been instructed to return if the symptoms worsen or change in any way. Because of the recent CT scans did not feel that no CT scan is warranted at this time. Patient laboratory studies not show any leukocytosis no lactic acidosis. Acute abdominal series not showing signs of free air did show marked amount of retained stool. The explained to the patient again that I do believe she is otherwise constipated more likely experiencing colonic spasm because of the massive amount of stool in the descending colon. Patient was very upset with this finding stating that she has had multiple bowel movements I have reassured patient at this time do not see any other significant findings no fevers no signs of sepsis. Recommend that we will treat the patient would go lightly and Carly also recommend patient follow-up with her primary care physician and possible need for a GI specialist that she has recurrent constipation. - Vital Signs Vital signs: Temp Pulse Resp BP Pulse Ox 97.7 F 77 24 H 211/96 H 99 07/11/18 18:40 07/11/18 18:40 07/11/18 18:40 07/11/18 18:40 07/11/18 18:40 - Laboratory Result Diagrams: 07/11/18 20:14 07/11/18 20:14 Laboratory results interpreted by me: 07/11/18 20:26 Urine Blood MODERATE H Discharge - Discharge Clinical Impression: Constipation Qualifiers: Constipation type: unspecified constipation type Qualified Code(s): K59.00 - Constipation, unspecified Abdominal pain Qualifiers: Abdominal location: unspecified location Qualified Code(s): R10.9 - Unspecified abdominal pain Condition: Good Disposition: HOME, SELF-CARE Instructions: Abdominal Pain ([facility]), Constipation ([facility]), Gastroenterology Additional Instructions: Your laboratory studies today do not show any signs of infection no surgical pathology laboratory tests including a lactic acid were negative for signs of serious infection. Your x-ray of your abdomen again does redemonstrated a large amount of stool in the descending colon which is on the left side of the body. Urine does not show any signs of infection. With large amount stool seen I am concerned that this is signs of possible constipation again. I highly recommend treatment with GoLYTELY. Please continue to drink this until the GoLYTELY is empty. I will also give you medication to help out with any nausea or vomiting she may have which is called Zofran. I would highly recommend following up with your primary care physician if this continues to occur I would recommend that you follow-up with a GI specialist. Prescriptions: Ondansetron [Zofran Odt] 4 mg PO Q6 PRN #30 tab.rapdis PRN Reason: For Nausea/Vomiting [id number]/Sod Sulf,Bicarb,Cl/KCl [Golytely Packet] 1 each PO ONCE PRN #1 powd.pack PRN Reason: Referrals: CARLOS SOTO MD [Primary Care Provider] - Follow up in 3-5 days
[2018-07-11 22:15] VITALS: BP 152/96
== END 2018-07-11 21:40 | disposition home or self-care (01) ==
LOC: ER 18:33
DX: K59.00 Constipation, unspecified (principal); Z80.0 Family history of malignant neoplasm of digestive organs; Z87.891 Personal history of nicotine dependence
CPT/HCPCS: 99284; 96374; 96375; 36415; 83605; 83690; 85025; 80053; 81001; 80307; 74022; J1200; J1885; J2765; J7030

== ENCOUNTER 2018-10-19 05:28 | Day surgery (SDC) | payer BC, OTHER ==
[2018-10-16 12:55] LABS: HEMATOCRIT 44.1 % (36.0-47.0); HEMOGLOBIN 15.3 g/dL (12.0-15.5); MEAN CORPUSCULAR HEMOGLOBIN 29.8 pg (27.0-33.4); MEAN CORPUSCULAR HGB CONC 34.8 g/dL (32.0-36.0); MEAN CORPUSCULAR VOLUME 86 fl (80-97); PLATELET COUNT 258 10^3/uL (150-450); RED BLOOD COUNT 5.14 10^6/uL (3.72-5.28); RED CELL DISTRIBUTION WIDTH 12.9 % (11.5-14.0); WHITE BLOOD COUNT 9.1 10^3/uL (4.0-10.5)
[2018-10-16 13:19] LABS: APPEARANCE,URINE SLIGHTLY-CLOUDY; BILIRUBIN,URINE NEGATIVE (NEGATIVE); COLOR,URINE YELLOW; GLUCOSE, URINE NEGATIVE (NEGATIVE); KETONES,URINE NEGATIVE (NEGATIVE); LEUKOCYTE ESTERASE,URINE NEGATIVE (NEGATIVE); NITRITE,URINE NEGATIVE (NEGATIVE); PROTEIN,URINE NEGATIVE (NEGATIVE); UROBILINOGEN,URINE NEGATIVE mg/dL (<2.0)
[~2018-10-19 05:28] MED LIST: LACTATED RINGERS 1000 ML IV PRN; LIDOCAINE 0.5% INJ-PF (5 MG/ML) 50 ML SDV SUBCUT PRN
[2018-10-19] MEDS ORDERED: FENTANYL CITRATE INJ/PF 100 MCG/2 ML AMPUL ONE ×2 (05:35→05:37)
[2018-10-19] MEDS ORDERED: MIDAZOLAM 2 MG/2 ML INJ ONE (05:36)
[2018-10-19] MEDS ORDERED: PROPOFOL INJ 200 MG/20 ML VIAL IV ONE (05:36)
[2018-10-19] MEDS ORDERED: ACETAMINOPHEN 0 MG/0 ML RTUPB IV ONE (05:36)
[2018-10-19] MEDS ORDERED: METHYLPREDNISOLONE INJ 125 MG/2 ML SDV ONE (07:02)
[2018-10-19] MEDS ORDERED: BUPIVACAINE HCL 0.25 % INJ/PF (2.5 MG/1 ML) 30 ML VIAL ONE (07:09)
[2018-10-19] MEDS ORDERED: PROMETHAZINE HCL INJ 25 MG/1 ML VIAL IV PRN (07:37)
[2018-10-19] MEDS ORDERED: FENTANYL CITRATE INJ/PF 100 MCG/2 ML AMPUL IV PRN ×3 (07:37)
[2018-10-19] MEDS ORDERED: MEPERIDINE HCL/PF INJ 25 MG/1 ML DISP.SYRIN IV PRN (07:37)
[2018-10-19] MEDS ORDERED: DIPHENHYDRAMINE HCL 50 MG/ML VIAL IV PRN (07:37)
[2018-10-19] MEDS ORDERED: LABETALOL HCL INJ 20 MG/4 ML DISP.SYRIN IV ONE (07:48)
[2018-10-19] MEDS ORDERED: KETOROLAC TROMETHAMINE INJ/PF 30 MG/1 ML SDV ONE (08:14)
[2018-10-19] MEDS: FENTANYL CITRATE INJ/PF 100 MCG/2 ML AMPUL ONE ×2 (08:15→08:20)
[2018-10-19] MEDS ORDERED: ACETAMINOPHEN 1,000 MG/100 ML RTUPB IV ONE (08:15)
[2018-10-19] MEDS ORDERED: OXYCODONE-ACETAMINOPHEN 5-325 MG TABLET PO PRN (08:40)
[2018-10-19] MEDS ORDERED: ONDANSETRON 4 MG TAB.RAPDIS PO PRN (08:40)
[2018-10-19] MEDS: HYDROMORPHONE HCL INJ/PF 2 MG/ML AMPULE ONE ×4 (08:45→09:00)
[2018-10-19] MEDS ORDERED: ONDANSETRON HCL INJ/PF 4 MG/2 ML SDV ONE ×2 (08:53→10:49)
[2018-10-19] MEDS ORDERED: IBUPROFEN 800 MG TABLET PO SCH (10:00)
[2018-10-19] MEDS ORDERED: DEXAMETHASONE SOD PHOSPHATE INJ 4 MG/1 ML VIAL ONE (10:49)
[2018-10-19] MEDS ORDERED: SUCCINYLCHOLINE CHLORIDE INJ 200 MG/10 ML VIAL ONE (10:49)
[2018-10-19] MEDS ORDERED: LIDOCAINE 2% INJ-PF (20 MG/ML) 2 ML AMPUL ONE (10:49)
[2018-10-19 15:53] VITALS: BP 142/78
--- NOTE | 2018-10-22 09:15 | OPERATIVE REPORT E ---
Operative Report NAME: CAROL RICHARDSON : 1975 AGE: 43Y DATE OF SURGERY: ROOM: PREOPERATIVE DIAGNOSIS: Left ovarian cyst with pelvic pain. POSTOPERATIVE DIAGNOSIS: Left ovarian cyst with pelvic pain. PROCEDURE: Left oophorectomy. ESTIMATED BLOOD LOSS: Less than 5 mL. TISSUE REMOVED: Ovary. ANESTHESIA: General. SURGEON: Brandy DOMINGUEZ M.D. DESCRIPTION OF PROCEDURE: The patient was placed in a dorsal lithotomy position, prepped and draped in sterile fashion. Sponge stick was placed in the vagina and bladder was drained with a catheter. A subumbilical semilunar incision was made through an existing eschar and the trocar was introduced in the patient's abdomen with visualization of the pelvis. There was a large ovarian cyst and trapped ovary on the left. Multiple adhesions were overlying the site from the omentum. A second puncture was made lateral to the first and a was introduced and suprapubic 10/12 trocar introduced. Using Harmonic scalpel the adhesions were carefully dissected away from the ovary. The infundibulopelvic was identified and this was divided using the Harmonic scalpel. Hemostasis was noted. The ovary was then removed by using a Pleatman sac. The area was then irrigated and hemostasis was again noted. The abdomen deflated, and trocar was easily removed. The suprapubic and subumbilical fascia was closed with 0 Vicryl and skin was closed with subcutaneous 4-0 Vicryl. The puncture on the left was closed using Dermabond. The sponge stick was removed. The patient was taken to recovery room in good condition. DICTATING PHYSICIAN: Brandy DOMINGUEZ M.D. [id number] PHY#: [id number] ID: [id number] JOB#: [id number] ACCT: [id number] cc:Brandy DOMINGUEZ M.D. >
== END 2018-10-19 11:00 | disposition home or self-care (01) ==
LOC: OROUT 05:28
PROVIDERS: ATTEND Obstetrics & Gynecology Gynecology
DX: N83.12 Corpus luteum cyst of left ovary (principal); N73.6 Female pelvic peritoneal adhesions (postinfective); R10.2 Pelvic and perineal pain; I10 Essential (primary) hypertension; Z87.891 Personal history of nicotine dependence; Z79.899 Other long term (current) drug therapy
CPT/HCPCS: 36415; 85027; 81001; 88305 ×2; 58661; J2250; J1100; J3010; J3490 ×2; J2930; J1885; J1170; J0330; J2405; J2704; J0131; 840